=== PATIENT | male | born 1995 | race Caucasian/White ===

== ENCOUNTER 2017-11-22 19:45 | Emergency (ER) | payer OTHER ==
[~2017-11-22] VITALS: Ht 182.9 cm; Wt 104.3 kg
[~2017-11-22 19:45] MED LIST: ACETAMINOPHEN-1 EAC1 PO; AMOXICILLIN 50500 M1 PO; AMOXICILLIN500 M1 PO; BACTRIM DS TAB1 EACH PO; CEPHALEXIN 500500 M3 PO; CLARITIN10 M2; FLOXIN OTI0.3 %/5 M1 OT; FOCALIN XR15 MG PO; IBUPROFEN 600600 M1 PO; IBUPROFEN 800800 M1 PO; NOHOMEMEDICATIONS; PHENERGAN 25 MG25 M1 PO
[2017-11-22 19:51] VITALS: BP 138/101
[2017-11-22] MEDS ORDERED: SSD CREAM 1% 5050 GM TOP (19:59)
[2017-11-22] MEDS ORDERED: HYDROCODONE-AP1 EAC6 PO (19:59)
== END 2017-11-22 20:14 | disposition home or self-care (01) ==
LOC: M.ERS 19:45
DX: T22.112A Burn of first degree of left forearm, initial encounter (principal); T31.0 Burns involving less than 10% of body surface; X08.8XXA Exposure to other specified smoke, fire and flames, initial encounter; Y93.89 Activity, other specified; Y92.89 Other specified places as the place of occurrence of the external cause; Y99.8 Other external cause status

== ENCOUNTER 2017-11-27 14:50 | Emergency (ER) | payer OTHER ==
[~2017-11-27 14:50] MED LIST changes: +HYDROCODONE-AP1 EAC6 PO; +SSD CREAM 1% 5050 GM TOP
== END 2017-11-27 15:08 | disposition home or self-care (01) ==
LOC: M.ERS 14:50
DX: Z53.21 Procedure and treatment not carried out due to patient leaving prior to being seen by health care provider (principal)